=== PATIENT | male | born 1985 | race African-American/Black ===

== ENCOUNTER 2018-08-11 19:01 | Emergency (ER) | payer SELFPAY ==
--- NOTE | 2018-08-11 19:48 | ER ---
Nurse's Notes [facility] Name: Noelle Marie Age: 33 yrs Sex: Male : 1985 Arrival Date: 08/11/2018 Time: 19:02 Bed Waiting Private MD: None, None Diagnosis: HYPERTENSIVE URGENCY Presentation: 08/11 19:35 Presenting complaint: Patient states: Patient was at work and had physical, BP was lp1 194/110, HR 79; Denies any chest pain, shortness of breath; Patient states he has missed some doses due to being out of town, about 1 week. Transition of care: patient was not received from another setting of care. Onset of symptoms was August 11, 2018. Risk Assessment: Do you want to hurt yourself or someone else? Patient reports no desire to harm self or others. Initial Sepsis Screen: Does the patient meet any 2 criteria? No. Patient's initial sepsis screen is negative. Does the patient have a suspected source of infection? No. Patient's initial sepsis screen is negative. Care prior to arrival: None. 19:35 Method Of Arrival: Ambulatory lp1 19:35 Acuity: ANJEL 3 lp1 Triage Assessment: 19:42 General: Appears in no apparent distress. Behavior is calm, cooperative, appropriate lp1 for age. Pain: Denies pain. Cardiovascular: Patient's skin is warm and dry. Historical: - Allergies: 19:39 No Known Allergies; lp1 - Home Meds: 19:39 amlodipine oral [Active]; carvedilol 12.5 mg oral tab daily [Active]; Prednisone Oral lp1 [Active]; 19:41 hydrochlorothiazide Oral [Active]; lp1 - PMHx: 19:39 Hypertension; Hyperlipidemia; lp1 - PSHx: 19:39 None; lp1 - Immunization history:: Adult Immunizations up to date. - Social history:: Smoking status: Patient uses tobacco products, smokes one pack cigarettes per day. - Ebola Screening: : No symptoms or risks identified at this time. Screenin:42 Abuse screen: Denies threats or abuse. Denies injuries from another. Nutritional lp1 screening: No deficits noted. Tuberculosis screening: No symptoms or risk factors identified. Fall Risk None identified. Assessment: 19:42 General: Appears in no apparent distress. Pain: Denies pain. Neuro: Level of lp1 Consciousness is awake, alert, obeys commands. Cardiovascular: Patient's skin is warm and dry. Respiratory: No deficits noted. GI: No deficits noted. : No deficits noted. EENT: No deficits noted. Derm: Skin is intact, Skin is dry, Skin is normal. Musculoskeletal: No deficits noted. 19:43 Reassessment: Dr. England assessing patient during triage. lp1 Vital Signs: 19:39 BP 136 / 77 RA; Pulse 102; Resp 16; Temp 97(TE); Pulse Ox 98% on R/A; Weight 94.8 kg; lp1 Height 5 ft. 9 in. (175.26 cm); Pain 0/10; 19:39 BP 129 / 73 LA; lp1 19:39 Body Mass Index 30.86 (94.80 kg, 175.26 cm) lp1 ED Course: 19:02 Patient arrived in ED. sb2 19:02 None, None is Private Physician. sb2 19:35 Simone England MD is Attending Physician. lp1 19:37 Triage completed. lp1 19:39 Arm band placed on right wrist. lp1 19:42 Patient has correct armband on for positive identification. lp1 19:42 No provider procedures requiring assistance completed. Patient did not have IV access lp1 during this emergency room visit. 20:04 Aurelia Desir, RN is Primary Nurse. lp1 Administered Medications: No medications were administered Outcome: 19:43 Condition: good lp1 19:48 Discharge ordered by . tw4 20:04 Discharged to home ambulatory. lp1 20:04 Discharge instructions given to patient, Instructed on discharge instructions, follow up and referral plans. Demonstrated understanding of instructions, follow-up care. 20:04 Patient left the ED. lp1 Signatures: Aurelia Desir, GEORGINA RN lp1 Simone England MD MD tw4 Maryann Jacobs sb2 Corrections: (The following items were deleted from the chart) 19:42 19:39 Pulse Ox 98% RA; Temp 97F Temporal; 94.8 kg; Height 5 ft. 9 in.; BMI: 30.8; Pain lp1 0/10; lp1
--- NOTE | 2018-08-12 20:04 | EDPHYS ---
Physician Documentation [facility] Name: Noelle Citizen Age: 33 yrs Sex: Male : 1985 Arrival Date: 08/11/2018 Time: 19:02 Bed Waiting Private MD: None, None ED Physician Simone England HPI: 08/12 02:18 This 33 yrs old Black Male presents to ER via Ambulatory with complaints of High Blood tw4 Pressure. 02:18 The patient has elevated blood pressure and discovered this at home. Onset: The tw4 symptoms/episode began/occurred today. Modifying factors: The symptoms are aggravated by discontinuation of meds, MARK-inhibitor, calcium channel anderson, hydrochlorothiazide. Associated signs and symptoms: The patient has no apparent associated signs or symptoms. Severity of symptoms: At its worst the blood pressure was moderate. The patient has not experienced similar symptoms in the past. Historical: - Allergies: 08/11 19:39 No Known Allergies; lp1 - Home Meds: 19:39 amlodipine oral [Active]; carvedilol 12.5 mg oral tab daily [Active]; Prednisone Oral lp1 [Active]; 19:41 hydrochlorothiazide Oral [Active]; lp1 - PMHx: 19:39 Hypertension; Hyperlipidemia; lp1 - PSHx: 19:39 None; lp1 - Immunization history:: Adult Immunizations up to date. - Social history:: Smoking status: Patient uses tobacco products, smokes one pack cigarettes per day. - Ebola Screening: : No symptoms or risks identified at this time. ROS: 08/12 02:18 Constitutional: Negative for fever, chills, and weight loss, Cardiovascular: Negative tw4 for chest pain, palpitations, and edema, Respiratory: Negative for shortness of breath, cough, wheezing, and pleuritic chest pain, Abdomen/GI: Negative for abdominal pain, nausea, vomiting, diarrhea, and constipation. Exam: 02:18 Constitutional: This is a well developed, well nourished patient who is awake, alert, tw4 and in no acute distress. Chest/axilla: Normal chest wall appearance and motion. Nontender with no deformity. No lesions are appreciated. Cardiovascular: Regular rate and rhythm with a normal S1 and S2. No gallops, murmurs, or rubs. Normal PMI, no JVD. No pulse deficits. Respiratory: Lungs have equal breath sounds bilaterally, clear to auscultation and percussion. No rales, rhonchi or wheezes noted. No increased work of breathing, no retractions or nasal flaring. MS/ Extremity: Pulses equal, no cyanosis. Neurovascular intact. Full, normal range of motion. Neuro: Awake and alert, GCS 15, oriented to person, place, time, and situation. Cranial nerves II-XII grossly intact. Motor strength 5/5 in all extremities. Sensory grossly intact. Cerebellar exam normal. Normal gait. Vital Signs: 08/11 19:39 BP 136 / 77 RA; Pulse 102; Resp 16; Temp 97(TE); Pulse Ox 98% on R/A; Weight 94.8 kg; lp1 Height 5 ft. 9 in. (175.26 cm); Pain 0/10; 19:39 BP 129 / 73 LA; lp1 19:39 Body Mass Index 30.86 (94.80 kg, 175.26 cm) 1 MDM: 19:48 Patient medically screened. tw4 08/12 02:18 Data reviewed: vital signs, nurses notes. Counseling: I had a detailed discussion with [facility] the patient and/or guardian regarding: the historical points, exam findings, and any diagnostic results supporting the discharge/admit diagnosis. Special discussion: I discussed with the patient/guardian in detail that at this point there is no indication for admission to the hospital. It is understood, however, that if the symptoms persist or worsen the patient needs to return immediately for re-evaluation. Administered Medications: No medications were administered Disposition: 02:38 Chart complete. [facility] Disposition: 08/11/18 19:48 Discharged to Home. Impression: HYPERTENSIVE URGENCY. - Condition is Stable. - Discharge Instructions: Hypertension, Managing Your Hypertension. - Work release form, Medication Reconciliation Form, Thank You Letter, Antibiotic Education, Prescription Opioid Use form. - Follow up: Private Physician; When: Upon discharge from the Emergency Department; Reason: Recheck today's complaints, Re-evaluation by your physician. - Problem is new. - Symptoms have improved. Signatures: Aurelia Desir RN RN lp1 Simone England MD MD 4 Corrections: (The following items were deleted from the chart) 08/11 20:04 19:48 08/11/2018 19:48 Discharged to Home. Impression: HYPERTENSIVE URGENCY. Condition lp1 is Stable. Discharge Instructions: Hypertension, Managing Your Hypertension. Forms are Work release form, Thank You Letter, Medication Reconciliation Form, Antibiotic Education, Prescription Opioid Use. Follow up: Private Physician; When: Upon discharge from the Emergency Department; Reason: Recheck today's complaints, Re-evaluation by your physician. Problem is new. Symptoms have improved. tw4
== END 2018-08-11 20:04 | disposition home or self-care (01) ==
LOC: ER 19:01
DX: I16.0 Hypertensive urgency (principal); E78.5 Hyperlipidemia, unspecified
CPT/HCPCS: 99281

== ENCOUNTER 2019-07-26 10:31 | Emergency (ER) | payer SELFPAY ==
--- NOTE | 2019-07-26 10:46 | EDPHYS ---
Physician Documentation [facility] Name: Noelle Citiyuriy Age: 34 yrs Sex: Male : 1985 Arrival Date: 07/26/2019 Time: 10:34 Bed Waiting Private MD: Jorge Munguia HPI: 07/26 11:00 This 34 yrs old Black Male presents to ER via Ambulatory with complaints of Foreign kb Body In Ear. 11:00 The patient presents with a foreign body sensation, a fullness, pain. The complaints kb affect the left ear. Onset: The symptoms/episode began/occurred 2 day(s) ago. Modifying factors: The symptoms are alleviated by nothing, the symptoms are aggravated by nothing. Associated signs and symptoms: The patient has no apparent associated signs or symptoms. Severity of symptoms: At their worst the symptoms were moderate in the emergency department the symptoms are unchanged. The patient has not experienced similar symptoms in the past. The patient has not recently seen a physician. Historical: - Allergies: 10:37 No Known Allergies; la1 - Home Meds: 10:37 amlodipine oral [Active]; carvedilol 12.5 mg Oral tab daily [Active]; la1 Hydrochlorothiazide Oral [Active]; Prednisone Oral [Active]; - PMHx: 10:37 Hyperlipidemia; Hypertension; la1 - Immunization history:: Adult Immunizations up to date. - Social history:: Smoking status: Patient/guardian denies using tobacco, Smoking status: Patient uses tobacco products, smokes one pack cigarettes per day. - Ebola Screening: : No symptoms or risks identified at this time. ROS: 10:47 Constitutional: Negative for fever, chills, and weight loss, Eyes: Negative for injury, kb pain, redness, and discharge, Neck: Negative for injury, pain, and swelling, Cardiovascular: Negative for chest pain, palpitations, and edema, Respiratory: Negative for shortness of breath, cough, wheezing, and pleuritic chest pain, Abdomen/GI: Negative for abdominal pain, nausea, vomiting, diarrhea, and constipation, MS/Extremity: Negative for injury and deformity, Skin: Negative for injury, rash, and discoloration, Neuro: Negative for headache, weakness, numbness, tingling, and seizure. 10:47 ENT: Positive for drainage from ear(s), ear pain. Exam: 10:47 Constitutional: This is a well developed, well nourished patient who is awake, alert, kb and in no acute distress. Head/Face: Normocephalic, atraumatic. Neck: Trachea midline, no thyromegaly or masses palpated, and no cervical lymphadenopathy. Supple, full range of motion without nuchal rigidity, or vertebral point tenderness. No Meningismus. Chest/axilla: Normal chest wall appearance and motion. Nontender with no deformity. No lesions are appreciated. Cardiovascular: Regular rate and rhythm with a normal S1 and S2. No gallops, murmurs, or rubs. Normal PMI, no JVD. No pulse deficits. Respiratory: Lungs have equal breath sounds bilaterally, clear to auscultation and percussion. No rales, rhonchi or wheezes noted. No increased work of breathing, no retractions or nasal flaring. Abdomen/GI: Soft, non-tender, with normal bowel sounds. No distension or tympany. No guarding or rebound. No evidence of tenderness throughout. Skin: Warm, dry with normal turgor. Normal color with no rashes, no lesions, and no evidence of cellulitis. MS/ Extremity: Pulses equal, no cyanosis. Neurovascular intact. Full, normal range of motion. Neuro: Awake and alert, GCS 15, oriented to person, place, time, and situation. Cranial nerves II-XII grossly intact. Motor strength 5/5 in all extremities. Sensory grossly intact. Cerebellar exam normal. Normal gait. 10:47 ENT: External ear(s): are unremarkable, Ear canal(s): erythema, that is moderate, of the left canal, swelling, that is moderate, of the left canal, TM's: are normal, Nose: is normal. Vital Signs: 10:37 BP 150 / 110; Pulse 93; Resp 16; Temp 97.1; Pulse Ox 100% on R/A; Weight 97.98 kg; la1 Height 5 ft. 9 in. (175.26 cm); 10:37 Body Mass Index 31.90 (97.98 kg, 175.26 cm) la1 MDM: 10:41 Patient medically screened. kb 10:46 Data reviewed: vital signs, nurses notes. Data interpreted: Pulse oximetry: on room air kb is 100 %. Interpretation: normal. Counseling: I had a detailed discussion with the patient and/or guardian regarding: the historical points, exam findings, and any diagnostic results supporting the discharge/admit diagnosis, the need for outpatient follow up, an ENT specialist, to return to the emergency department if symptoms worsen or persist or if there are any questions or concerns that arise at home. Administered Medications: No medications were administered Disposition: 07/27 09:17 Co-signature as Attending Physician, Jorge Schneider MD I agree with the assessment and saida plan of care. Disposition: 07/26/19 10:45 Discharged to Home. Impression: Unspecified otitis externa, left ear. - Condition is Stable. - Discharge Instructions: Otitis Externa, [id number], Ear Drops, Adult, [id number]. - Prescriptions for Cortisporin 3.5- 10,000-1 mg/mL-unit/mL-% Otic solution - instill 4 drop by OTIC route 3 times per day for 7 days; 1 bottle. - Medication Reconciliation Form, Thank You Letter, Antibiotic Education, Prescription Opioid Use form. - Follow up: Emergency Department; When: As needed; Reason: Worsening of condition. Follow up: Private Physician; When: 2 - 3 days; Reason: Recheck today's complaints, Continuance of care, Re-evaluation by your physician. Signatures: Melissa Manning, DUST COLLECTOR ATTENDANT-C DUST COLLECTOR ATTENDANT-Mananb Jorge Schneider MD MD cha Attema, Lee RN RN la1 Corrections: (The following items were deleted from the chart) 07/26 10:48 10:45 07/26/2019 10:45 Discharged to Home. Impression: Unspecified otitis externa, left la1 ear. Condition is Stable. Forms are Medication Reconciliation Form, Thank You Letter, Antibiotic Education, Prescription Opioid Use. Follow up: Emergency Department; When: As needed; Reason: Worsening of condition. Follow up: Private Physician; When: 2 - 3 days; Reason: Recheck today's complaints, Continuance of care, Re-evaluation by your physician. kb
--- NOTE | 2019-07-26 10:46 | ER ---
Nurse's Notes [facility] Name: Noelle Marie Age: 34 yrs Sex: Male : 1985 Arrival Date: 07/26/2019 Time: 10:34 Bed Waiting Private MD: Diagnosis: Unspecified otitis externa, left ear Presentation: 07/26 10:36 Presenting complaint: Patient states: I think there is a bug in my left ear, has been la1 bothering me for the last two days. Transition of care: patient was not received from another setting of care. Onset of symptoms was July 26, 2019. Risk Assessment: Do you want to hurt yourself or someone else? Patient reports no desire to harm self or others. Initial Sepsis Screen: Does the patient meet any 2 criteria? No. Patient's initial sepsis screen is negative. Does the patient have a suspected source of infection? No. Patient's initial sepsis screen is negative. Care prior to arrival: None. 10:36 Method Of Arrival: Ambulatory la1 10:36 Acuity: ANJEL 4 la1 Historical: - Allergies: 10:37 No Known Allergies; la1 - Home Meds: 10:37 amlodipine oral [Active]; carvedilol 12.5 mg Oral tab daily [Active]; la1 Hydrochlorothiazide Oral [Active]; Prednisone Oral [Active]; - PMHx: 10:37 Hyperlipidemia; Hypertension; la1 - Immunization history:: Adult Immunizations up to date. - Social history:: Smoking status: Patient/guardian denies using tobacco, Smoking status: Patient uses tobacco products, smokes one pack cigarettes per day. - Ebola Screening: : No symptoms or risks identified at this time. Screenin:42 Abuse screen: Denies threats or abuse. Nutritional screening: No deficits noted. la1 Tuberculosis screening: No symptoms or risk factors identified. Fall Risk None identified. Assessment: 10:41 General: Appears in no apparent distress. Behavior is calm, cooperative. Pain: la1 Complains of pain in left ear. Neuro: Level of Consciousness is awake, alert, obeys commands, Oriented to person, place, time, situation. Cardiovascular: Capillary refill < 3 seconds Patient's skin is warm and dry. Respiratory: Airway is patent Respiratory effort is even, unlabored. GI: No signs and/or symptoms were reported involving the gastrointestinal system. : No signs and/or symptoms were reported regarding the genitourinary system. EENT: Ear canal swollen. Vital Signs: 10:37 BP 150 / 110; Pulse 93; Resp 16; Temp 97.1; Pulse Ox 100% on R/A; Weight 97.98 kg; la1 Height 5 ft. 9 in. (175.26 cm); 10:37 Body Mass Index 31.90 (97.98 kg, 175.26 cm) la1 ED Course: 10:34 Patient arrived in ED. mr 10:36 Triage completed. la1 10:38 Arm band placed on right wrist. la1 10:40 Melissa Manning FNP-C is PHCP. kb 10:41 Jorge Schneider MD is Attending Physician. kb 10:42 Patient has correct armband on for positive identification. la1 10:42 No provider procedures requiring assistance completed. Patient did not have IV access la1 during this emergency room visit. Administered Medications: No medications were administered Outcome: 10:45 Discharge ordered by . kb 10:46 Discharged to home ambulatory. la1 10:46 Condition: stable 10:46 Discharge instructions given to patient, Instructed on discharge instructions, follow up and referral plans. medication usage, Demonstrated understanding of instructions, follow-up care, medications, Prescriptions given X 1. 10:48 Patient left the ED. la1 Signatures: Melissa Manning FNP-C FNP-Roger HaydenSarah mr BranchErickson, RN RN la1
== END 2019-07-26 10:48 | disposition home or self-care (01) ==
LOC: ER 10:31
DX: H60.92 Unspecified otitis externa, left ear (principal); I10 Essential (primary) hypertension; E78.5 Hyperlipidemia, unspecified
CPT/HCPCS: 99282